=== PATIENT | male | born 1965 | race Caucasian/White ===

== ENCOUNTER 2021-03-11 20:22 | Inpatient (IN) | payer SELFPAY ==
--- OUTSIDE RECORDS SUMMARY | 2021-03-11 20:26 | XMS REPORT | Continuity of Care Document ---
:1965 Author Organization [facility] t Address [address] [place] [address] Dr. Nicholson [address] [place] [address] Care Team Providers Name Role Phone SHELLY Attending Clinician Unavailable Problems This patient has no known problems. Allergies, Adverse Reactions, Alerts This patient has no known allergies or adverse reactions. Medications This patient has no known medications. Procedures This patient has no known procedures. Encounters Start End Encounter Admission Attending Care Care Encounter Source Date/Time Date/Time Type Type Clinicians Facility Department ID 2020-05-29 2020-05-29 Outpatient [facility] [id number] [place] 00:00:00 00:00:00 JOSUE [address] 2020-05-08 2020-05-08 [facility] [id number] [place] 00:00:00 00:00:[address] Results This patient has no known results.
[2021-03-11] MEDS ORDERED: ASPIRIN 81 MG CHEWABLE TABLET ONE (21:13)
[2021-03-11] MEDS ORDERED: NITROGLYCERIN 0.4 MG/TAB SL ONE (21:13)
--- NOTE | 2021-03-11 21:52 | RAD REPORT ---
EXAM DESCRIPTION: RAD - Chest Single View - 03/11/2021 9:43 pm CLINICAL HISTORY: Chest pain;SOB Chest pain. COMPARISON: No comparisons FINDINGS: Portable technique limits examination quality. Mild interstitial pulmonary edema. The heart is moderately enlarged. Multi lead pacer/ defibrillator device is present. IMPRESSION: Mild CHF.
[2021-03-11 22:26] LABS: Absolute Lymphocytes (CBC) 1.5 K/uL (0.7-4.9); Hematocrit 42.7 % (39.6-49.0); Lymphocytes % 20.3 % (15.3-44.8); MPV 8.4 fL (7.6-11.3); RBC Red Blood Cell Count 4.54 M/uL (4.33-5.43)
[2021-03-11 22:36] LABS: Protime INR 0.9
[2021-03-11] MEDS ORDERED: NITROGLYCERIN 1 GM PKT TD ONE ×2 (22:40→22:41)
[2021-03-11 22:48] LABS: ALT/SGPT 28 U/L (12-78); AST/SGOT 19 U/L (15-37); Albumin 3.2 g/dL (3.4-5.0); Alkaline Phosphatase 82 U/L (45-117); BUN Blood Urea Nitrogen 9 mg/dL (7-18); Bicarbonate 28 mmol/L (21-32); Bilirubin Direct < 0.1 mg/dL (0-0.2); Bilirubin Total 0.3 mg/dL (0.2-1.0); Glucose Level 98 mg/dL (74-106); Magnesium 1.9 mg/dL (1.8-2.4); NT PRO-BNP 439 pg/mL (<125); Potassium 4.4 mmol/L (3.5-5.1); Protein, Total 7.1 g/dL (6.4-8.2); Sodium Level 135 mmol/L (136-145)
[2021-03-11] MEDS ORDERED: FUROSEMIDE 40 MG/4 ML VIAL ONE (23:04)
--- NOTE | 2021-03-11 23:44 | ER ---
Nurse's Notes [facility] Name: Ty Perez Age: 55 yrs Sex: Male : 1965 Arrival Date: 03/11/2021 Time: 20:25 Bed 8 Private MD: Diagnosis: Chest pain, unspecified;Acute on chronic combined systolic (congestive) and diastolic (congestive) heart failure Presentation: 03/11 20:38 Chief complaint: Patient states: I HAVE CHF AND I AM FEELING SHORT OF BREATH AND MY kd3 BLOOD PRESSURE HAS BEEN HIGH. I WANTED TO COME IN BEFORE IT GOT WORSE. Coronavirus screen: Vaccine status: Patient reports receiving the 2nd dose of the covid vaccine. Ebola Screen: No symptoms or risks identified at this time. Initial Sepsis Screen: Does the patient meet any 2 criteria? No. Patient's initial sepsis screen is negative. Does the patient have a suspected source of infection? No. Patient's initial sepsis screen is negative. Risk Assessment: Do you want to hurt yourself or someone else? Patient reports no desire to harm self or others. Onset of symptoms was March 11, 2021 at 15:00. 20:38 Method Of Arrival: Ambulatory kd3 20:38 Acuity: NAVEEN 3 kd3 Triage Assessment: 20:31 General: Appears in no apparent distress. Behavior is calm, cooperative, appropriate kd3 for age. Pain: Denies pain. Cardiovascular: Patient's skin is warm and dry. Historical: - Allergies: 20:40 CEPHALOSPORINS; kd3 - Home Meds: 20:41 valsartan 160 mg oral tab 1 tab once daily for chronic heart failure [Active]; kd3 captopril 25 mg Oral tab 1 tab 3 times per day [Active]; eplerenone 25 mg oral tab 1 tab once daily [Active]; - PMHx: 20:40 Congestive heart failure; Hypertensive disorder; kd3 - Immunization history:: Adult Immunizations up to date, Client reports receiving the 2nd dose of the Covid vaccine, Flu vaccine is up to date. - Social history:: Smoking status: Patient denies any tobacco usage or history of. Screenin:41 Abuse screen: Denies threats or abuse. Denies injuries from another. Nutritional kd3 screening: No deficits noted. Tuberculosis screening: No symptoms or risk factors identified. Fall Risk None identified. Assessment: 21:00 General: Appears in no apparent distress. comfortable, Behavior is calm, cooperative, al4 appropriate for age, patient states he came in due to "weird heart rhythm and dizziness that started at 1500". Pain: Complains of pain in chest Pain does not radiate. Pain began at 1500. Neuro: Level of Consciousness is awake, alert, obeys commands, Oriented to person, place, time, situation. Cardiovascular: Reports chest pain, Heart tones present Capillary refill < 3 seconds Patient's skin is warm and dry. Respiratory: Airway is patent Respiratory effort is even, unlabored, Respiratory pattern is regular, symmetrical, Breath sounds are clear bilaterally. GI: No signs and/or symptoms were reported involving the gastrointestinal system. : No signs and/or symptoms were reported regarding the genitourinary system. EENT: No signs and/or symptoms were reported regarding the EENT system. Derm: No signs and/or symptoms reported regarding the dermatologic system. Musculoskeletal: No signs and/or symptoms reported regarding the musculoskeletal system. 22:00 Reassessment: Patient and/or family updated on plan of care and expected duration. Pain al4 level reassessed. Patient is alert, oriented x 3, equal unlabored respirations, skin warm/dry/pink. 23:00 Reassessment: Patient and/or family updated on plan of care and expected duration. Pain al4 level reassessed. Patient is alert, oriented x 3, equal unlabored respirations, skin warm/dry/pink. 03/12 00:00 Reassessment: Patient and/or family updated on plan of care and expected duration. Pain al4 level reassessed. Patient is alert, oriented x 3, equal unlabored respirations, skin warm/dry/pink. 01:00 Reassessment: Patient and/or family updated on plan of care and expected duration. Pain al4 level reassessed. Patient is alert, oriented x 3, equal unlabored respirations, skin warm/dry/pink. 01:30 Reassessment: Patients rhythm went into v tach for about 30 seconds when standing up to al4 urinate in urinal. YELITZA Kign aware and came to bedside. 02:00 Reassessment: Patient and/or family updated on plan of care and expected duration. Pain al4 level reassessed. Patient is alert, oriented x 3, equal unlabored respirations, skin warm/dry/pink. 02:30 Reassessment: Patients rhythm went into V tach again for about 20 seconds. YELITZA King and al4 Dr. Tello aware. 03:00 Reassessment: Patient and/or family updated on plan of care and expected duration. Pain al4 level reassessed. Patient is alert/active/playful, equal unlabored respirations, skin warm/dry/pink. 04:03 Reassessment: Patient and/or family updated on plan of care and expected duration. Pain al4 level reassessed. Patient is alert, oriented x 3, equal unlabored respirations, skin warm/dry/pink. 05:07 Reassessment: patient is sleeping. VS are stable. . al4 05:32 Reassessment: patient is sleeping. VS are stable. Call light, phone, and urinal at al4 bedside within reach. 06:56 Reassessment: Patient is alert, oriented x 3, equal unlabored respirations, skin al4 warm/dry/pink. hospitalist came to bedside. aware of intermittent periods of VTach, not sustained. patient is resting comfortably. 19:15 General: Appears in no apparent distress. comfortable. Pain: Denies pain. Neuro: Level mk of Consciousness is awake, alert, obeys commands, Oriented to person, place, time, situation. Cardiovascular: Heart tones S1 S2 present Capillary refill < 3 seconds in bilateral fingers toes Clubbing of nail beds is absent JVD is absent Patient's skin is warm and dry. Respiratory: Airway is patent. GI: Abdomen is non-distended. : No signs and/or symptoms were reported regarding the genitourinary system. Vital Signs: 03/11 20:38 BP 180 / 98; Pulse 106; Resp 17; Temp 98.4; Pulse Ox 100% ; Weight 154.22 kg; Height 6 kd3 ft. (182.88 cm); Pain 0/10; 21:00 BP 142 / 109; Pulse 111; Resp 24; Pulse Ox 99% ; al4 22:00 BP 109 / 77; Pulse 89; Resp 16; Pulse Ox 98% ; al4 23:00 BP 110 / 63; Pulse 84; Resp 16; Pulse Ox 97% ; al4 03/12 01:06 BP 130 / 87; Pulse 98; Resp 23; Pulse Ox 97% ; al4 01:45 BP 108 / 62; Pulse 102; Resp 22; Pulse Ox 100% ; al4 02:15 BP 139 / 81; Pulse 100; Resp 16; Pulse Ox 99% ; al4 02:45 BP 131 / 94; Pulse 84; Resp 20; Pulse Ox 96% ; al4 03:45 BP 140 / 86; Pulse 89; Resp 21; Pulse Ox 99% ; al4 04:45 BP 144 / 70; Pulse 83; Resp 18; Pulse Ox 99% ; al4 05:15 BP 165 / 92; Pulse 85; Resp 18 S; Pulse Ox 99% on R/A; al4 06:15 BP 165 / 86; Pulse 85; Resp 16; Pulse Ox 100% on R/A; al4 19:41 BP 127 / 86; Pulse 96; Resp 18; Pulse Ox 98% on R/A; mk 03/11 20:38 Body Mass Index 46.11 (154.22 kg, 182.88 cm) kd3 ED Course: 03/11 20:25 Patient arrived in ED. jj6 20:34 Buzz Tello MD is Attending Physician. 7 20:40 Triage completed. kd3 20:40 Arm band placed on right wrist. kd3 21:30 Inserted saline lock: 20 gauge in left hand, using aseptic technique. al4 21:43 XRAY Chest (1 view) In Process Unspecified. EDMS 23:43 Gladys Carroll MD is Hospitalizing Provider. [facility] 23:49 Drew Glaser is Primary Nurse. al4 23:52 Patient has correct armband on for positive identification. Placed in gown. Bed in low al4 position. certified coder on. Pulse ox on. NIBP on. 23:52 Patient maintains SpO2 saturation greater than 95% on room air. al4 03/12 19:41 No provider procedures requiring assistance completed. Patient admitted, IV remains in mk place. 19:43 Primary Nurse role handed off by Drew Glaser 19:43 Bia Murray, MALAIKA is Primary Nurse. Administered Medications: 03/11 21:29 Drug: Aspirin Chewable Tablet 324 mg Route: PO; al4 21:56 Follow up: Response: No adverse reaction al4 21:29 Not Given (Patient Refused): Nitroglycerin 0.4 mg Sublingual once al4 22:47 Not Given (Patient Refused; physician aware ): Nitro-Bid (nitroglycerin) Ointment 2 % 1 al4 inches Transdermal once 23:14 Drug: Lasix (furosemide) 40 mg Route: IVP; Site: left hand; al4 23:53 Follow up: Response: No adverse reaction al4 Outcome: 23:43 Decision to Hospitalize by Provider. 7 03/12 19:41 Admitted to Pedi accompanied by nurse, via stretcher. mk Condition: stable Instructed on the need for admit. 19:44 Patient left the ED. mk Signatures: Dispatcher [employer] Buzz Reveles MD MD 7 Oriana Tan6 Krys Kim RN RN [id number] Drew Glaser Madeline, RN RN mk Corrections: (The following items were deleted from the chart) 03:55 03/11 21:00 Pain: Complains of pain in chest Pain does not radiate. Pain began al4 suddenly, al4 03/12 03:56 03/11 21:00 General: Appears in no apparent distress. comfortable, Behavior is calm, al4 cooperative, appropriate for age, al4
--- NOTE | 2021-03-11 23:44 | EDPHYS ---
Physician Documentation [facility] Name: Ty Perez Age: 55 yrs Sex: Male : 1965 Arrival Date: 03/11/2021 Time: 20:25 Bed 8 Private MD: ED Physician Buzz Tello HPI: 03/11 20:46 This 55 yrs old Male presents to ER via Ambulatory with complaints of CHF Exacerbation, mh7 Chest Tightness, Shortness Of Breath. 20:46 The patient or guardian reports chest pain that is located primarily in the substernal mh7 area. Onset: today, at 15:00. The pain does not radiate. Associated signs and symptoms: Pertinent positives: cough, dizziness, palpitations, shortness of breath, Pertinent negatives: abdominal pain, diaphoresis, headache, lower extremity pain, lower extremity swelling, lightheadedness, nausea, near syncope, recent travel, syncope, vomiting. The chest pain is described as Tightness. Duration: The patient or guardian reports multiple episodes, that are intermittent, that wax and wane, with no pattern. Modifying factors: The symptoms are alleviated by nothing. the symptoms are aggravated by nothing. Severity of pain: At its worst the pain was moderate today, in the emergency department the pain has improved moderately. Historical: - Allergies: 20:40 CEPHALOSPORINS; kd3 - Home Meds: 20:41 valsartan 160 mg oral tab 1 tab once daily for chronic heart failure [Active]; kd3 captopril 25 mg Oral tab 1 tab 3 times per day [Active]; eplerenone 25 mg oral tab 1 tab once daily [Active]; - PMHx: 20:40 Congestive heart failure; Hypertensive disorder; kd3 - Immunization history:: Adult Immunizations up to date, Client reports receiving the 2nd dose of the Covid vaccine, Flu vaccine is up to date. - Social history:: Smoking status: Patient denies any tobacco usage or history of. ROS: 20:46 Constitutional: Negative for fever, chills, and weight loss, Eyes: Negative for injury, mh7 pain, redness, and discharge, ENT: Negative for injury, pain, and discharge, Neck: Negative for injury, pain, and swelling, Abdomen/GI: Negative for abdominal pain, nausea, vomiting, diarrhea, and constipation, Back: Negative for injury and pain, : Negative for injury, bleeding, discharge, and swelling, MS/Extremity: Negative for injury and deformity, Skin: Negative for injury, rash, and discoloration, Neuro: Negative for headache, weakness, numbness, tingling, and seizure, Psych: Negative for depression, anxiety, suicide ideation, homicidal ideation, and hallucinations, Allergy/Immunology: Negative for hives, rash, and allergies, Endocrine: Negative for neck swelling, polydipsia, polyuria, polyphagia, and marked weight changes, Hematologic/Lymphatic: Negative for swollen nodes, abnormal bleeding, and unusual bruising. Exam: 20:46 Constitutional: This is a well developed, well nourished patient who is awake, alert, mh7 and in no acute distress. Head/Face: Normocephalic, atraumatic. Eyes: Pupils equal round and reactive to light, extra-ocular motions intact. Lids and lashes normal. Conjunctiva and sclera are non-icteric and not injected. Cornea within normal limits. Periorbital areas with no swelling, redness, or edema. Neck: Trachea midline, no thyromegaly or masses palpated, and no cervical lymphadenopathy. Supple, full range of motion without nuchal rigidity, or vertebral point tenderness. No Meningismus. Chest/axilla: Normal chest wall appearance and motion. Nontender with no deformity. No lesions are appreciated. 20:46 Respiratory: Lungs have equal breath sounds bilaterally, clear to auscultation and 7 percussion. No rales, rhonchi or wheezes noted. No increased work of breathing, no retractions or nasal flaring. Abdomen/GI: Soft, non-tender, with normal bowel sounds. No distension or tympany. No guarding or rebound. No evidence of tenderness throughout. Back: No spinal tenderness. No costovertebral tenderness. Full range of motion. Skin: Warm, dry with normal turgor. Normal color with no rashes, no lesions, and no evidence of cellulitis. MS/ Extremity: Pulses equal, no cyanosis. Neurovascular intact. Full, normal range of motion. Neuro: Awake and alert, GCS 15, oriented to person, place, time, and situation. Cranial nerves II-XII grossly intact. Motor strength 5/5 in all extremities. Sensory grossly intact. Cerebellar exam normal. Normal gait. Psych: Awake, alert, with orientation to person, place and time. Behavior, mood, and affect are within normal limits. 20:46 Cardiovascular: Rate: tachycardic, Rhythm: regular, Pulses: no pulse deficits are appreciated, Heart sounds: normal, normal S1and S2, Edema: is not appreciated, JVD: is not appreciated. Vital Signs: 20:38 BP 180 / 98; Pulse 106; Resp 17; Temp 98.4; Pulse Ox 100% ; Weight 154.22 kg; Height 6 kd3 ft. (182.88 cm); Pain 0/10; 21:00 BP 142 / 109; Pulse 111; Resp 24; Pulse Ox 99% ; al4 22:00 BP 109 / 77; Pulse 89; Resp 16; Pulse Ox 98% ; al4 23:00 BP 110 / 63; Pulse 84; Resp 16; Pulse Ox 97% ; al4 03/12 01:06 BP 130 / 87; Pulse 98; Resp 23; Pulse Ox 97% ; al4 01:45 BP 108 / 62; Pulse 102; Resp 22; Pulse Ox 100% ; al4 02:15 BP 139 / 81; Pulse 100; Resp 16; Pulse Ox 99% ; al4 02:45 BP 131 / 94; Pulse 84; Resp 20; Pulse Ox 96% ; al4 03:45 BP 140 / 86; Pulse 89; Resp 21; Pulse Ox 99% ; al4 04:45 BP 144 / 70; Pulse 83; Resp 18; Pulse Ox 99% ; al4 05:15 BP 165 / 92; Pulse 85; Resp 18 S; Pulse Ox 99% on R/A; al4 06:15 BP 165 / 86; Pulse 85; Resp 16; Pulse Ox 100% on R/A; al4 19:41 BP 127 / 86; Pulse 96; Resp 18; Pulse Ox 98% on R/A; mk 03/11 20:38 Body Mass Index 46.11 (154.22 kg, 182.88 cm) kd3 MDM: 03/11 23:41 Differential diagnosis: abnormal EKG, acute myocardial infarction, acute pericarditis, mh7 anxiety, coronary artery disease chest wall pain, congestive heart failure costochondritis, esophagitis, gastritis, gastroesophageal reflux disease (GERD), myocarditis, pericarditis, pneumonia, pneumothorax. HEART Score: History: Moderately Suspicious (1), ECG: Non specific repolarization disturbance / LBTB / PM (1), Age: > 45 and < 65 years (1), Risk Factors: 1 or 2 risk factors (1), [Hypercholesterolemia] [Hypertension] Troponin: < or = 1 x Normal Limit (0), Total Score = 4. The patient was given aspirin in the Emergency Department. Data reviewed: vital signs, nurses notes, lab test result(s), cardiac enzymes, CBC, electrolytes, EKG, radiologic studies, plain films. Data interpreted: Pulse oximetry: on 2L(s) per nasal canula, is 100 %. Interpretation: acceptable. Counseling: I had a detailed discussion with the patient and/or guardian regarding: the historical points, exam findings, and any diagnostic results supporting the discharge/admit diagnosis, the presence of at least one elevated blood pressure reading (>120/80) during this emergency department visit, lab results, radiology results, the need for further work-up and treatment in the hospital. Response to treatment: the patient's symptoms have markedly improved after treatment. 23:43 Patient medically screened. [facility] 03/11 20:46 Order name: Basic Metabolic Panel; Complete Time: 22:51 [facility] 03/11 20:46 Order name: CBC with Diff; Complete Time: 22:51 [facility] 03/11 20:46 Order name: LFT's; Complete Time: 22:51 [facility] 03/11 20:46 Order name: Magnesium; Complete Time: 22:51 [facility] 03/11 20:46 Order name: NT PRO-BNP; Complete Time: 22:51 [facility] 03/11 20:46 Order name: PT-INR; Complete Time: 22:51 [facility] 03/11 20:46 Order name: Troponin HS; Complete Time: 22:51 [facility] 03/11 20:46 Order name: TSH; Complete Time: 22:51 [facility] 03/11 20:49 Order name: COVID-19/FLU A+B (Document "Date of Onset" if Symptomatic); Complete Time: [facility] 02:53 03/12 02:53 Interpretation: Within normal limits. ej 03/12 01:25 Order name: Urine Dipstick-Ancillary [facility] 03/12 03:33 Order name: CBC with Automated Diff [facility] 03/12 03:52 Order name: Comprehensive Metabolic Panel [facility] 03/12 03:52 Order name: Phosphorus [facility] 03/12 03:52 Order name: Lipid Profile [facility] 03/11 20:46 Order name: XRAY Chest (1 view); Complete Time: 21:53 [facility] 03/11 20:46 Order name: EKG; Complete Time: 20:47 [facility] 03/11 20:46 Order name: Cardiac monitoring; Complete Time: 21:30 [facility] 03/11 20:46 Order name: EKG - Nurse/Tech; Complete Time: 21:30 [facility] 03/11 20:46 Order name: IV Saline Lock; Complete Time: 21:30 [facility] 03/11 20:46 Order name: Labs collected and sent; Complete Time: 21:30 [facility] 03/11 20:46 Order name: O2 Per Protocol; Complete Time: 21:30 [facility] 03/12 00:00 Order name: CONS Physician Consult [facility] 03/12 03:52 Order name: T4 Free [facility] 03/12 03:52 Order name: Magnesium [facility] 03/12 03:55 Order name: Troponin High Sensitivity [facility] 03/12 08:15 Order name: Troponin High Sensitivity [facility] 03/11 20:46 Order name: O2 Sat Monitoring; Complete Time: 21:30 [facility] 03/11 20:46 Order name: Urine Dipstick-Ancillary (obtain specimen); Complete Time: 01:47 [facility] 03/11 21:40 Order name: Labs - recollect needed: all labs needed; Complete Time: 00:25 mw2 Administered Medications: 21:29 Drug: Aspirin Chewable Tablet 324 mg Route: PO; al4 21:56 Follow up: Response: No adverse reaction al4 21:29 Not Given (Patient Refused): Nitroglycerin 0.4 mg Sublingual once al4 22:47 Not Given (Patient Refused; physician aware ): Nitro-Bid (nitroglycerin) Ointment 2 % 1 al4 inches Transdermal once 23:14 Drug: Lasix (furosemide) 40 mg Route: IVP; Site: left hand; al4 23:53 Follow up: Response: No adverse reaction al4 Disposition Summary: 03/11/21 23:43 Hospitalization Ordered Hospitalization Status: Observation [facility] Provider: Gladys Carroll Condition: Stable [facility] Problem: an acute exacerbation [facility] Symptoms: have improved [facility] Bed/Room Type: Standard [facility] Location: Telemetry/MedSurg (observation)(03/12/21 18:39) dw Room Assignment: 211(03/12/21 18:39) dw Diagnosis - Chest pain, unspecified 7 - Acute on chronic combined systolic (congestive) and diastolic (congestive) heart [facility] failure Forms: - Medication Reconciliation Form 7 - SBAR form 7 Signatures: Dispatcher [employer] EDMS Serene Padilla RN RN Marilia Valente RN RN Marquise Bauer 2 Buzz Tello MD MD 7 Fernando Scott PA PA ej Doucette, Kyli RN RN 3 Drew Glaser4 Corrections: (The following items were deleted from the chart) 03/12 03:48 03/11 23:43 Telemetry/MedSurg (observation) [facility] 03/12 03:48 03/11 23:43 [facility] 03/12 18:39 03:48 BR ER HOLD [facility] 18:39 03:48 ERHOLD- [facility]
--- NOTE | 2021-03-12 01:24 | P.HP ---
Certification for Inpatient Patient admitted to: Inpatient With expected LOS: >2 Midnights Patient will require the following post-hospital care: None Practitioner: I am a practitioner with admitting privileges, knowledge of patient current condition, hospital course, and medical plan of care. Services: Services provided to patient in accordance with Admission requirements found in Title 42 Section 412.3 of the Code of Federal Regulations Patient History Date of Service: 03/11/21 Reason for admission: chest pain, palpitations, CHF exacerbation History of Present Illness: Mr. Perez is a 55 yo M with CHF s/p defibrillator/pacemaker, HTN, CAD (NH in 1991, 2011, 2014), history of cardiac arrest who presents with substernal chest discomfort and shortness of breath beginning today at 3pm when he went to walk his dogs. He reports dizziness, palpitations, and diaphoresis with this episode. He says he had similar episodes 4 more times today. He notes today that he drank double the coffee than usual (6 cups, instead of 3). He says he will have these episodes 1-2 times a year, but usually he returns to normal afterward. He has a pacemaker/defibrillator that he has not had checked due to not having health insurance. He used to see Dr. Benitez at [facility]. He says the pacemaker used to alarm daily at the same time everyday, but now it does not. BNP 439. While at bedside, the monitor read 180 bpm, ventricular tachycardia and he told me he felt like he was having an episode. His heartbeat was rapid and irregular. A few seconds later, the monitor dropped to 100bpm and he told me the sensation stopped as well. His heartbeat was regular rate and rhythm on repeat examination. CXR IMPRESSION: Mild CHF. - Past Medical/Surgical History -: CHf -: HTN -: NH x 3 (1991 2011 2014) -: cardiac arrest -: pacer/defibrillator -: angioplasty -: cardiac stents x 4 -: CABG x 3 -: IVC filter - Social History Smoking Status: Never smoker Alcohol use: No CD- Drugs: No Caffeine use: Yes Place of Residence: Home Review of Systems 10-point ROS is otherwise unremarkable General: Sweats Eyes: Unremarkable ENT: Unremarkable Respiratory: SOB with Excertion, As per HPI Cardiovascular: Chest Pain, Palpitations, Light Headedness, As per HPI Gastrointestinal: Unremarkable Genitourinary: Unremarkable Musculoskeletal: Unremarkable Integumentary: Unremarkable Neurological: Unremarkable Lymphatics: Unremarkable Physical Examination - Physical Exam General: Alert, In no apparent distress HEENT: Atraumatic, PERRLA, Mucous membr. moist/pink, EOMI, Sclerae nonicteric Neck: Supple, 2+ carotid pulse no bruit, No LAD, Without JVD or thyroid abnormality Respiratory: Clear to auscultation bilaterally, Normal air movement Cardiovascular: Irregular heart rate/rhythm Gastrointestinal: Normal bowel sounds, No tenderness Musculoskeletal: No tenderness Integumentary: No rashes Neurological: Normal gait, Normal speech, Normal strength at 5/5 x4 extr, Normal tone, Normal affect Lymphatics: No axilla or inguinal lymphadenopathy - Studies Laboratory Data (last 24 hrs) 03/11/21 22:11: PT 10.3, INR 0.90 03/11/21 22:11: WBC 7.40, Hgb 14.1, Hct 42.7, Plt Count 240 03/11/21 22:11: Sodium 135 L, Potassium 4.4, BUN 9, Creatinine 1.19, Glucose 98, Magnesium 1.9, Total Bilirubin 0.3, AST 19, ALT 28, Alkaline Phosphatase 82 Assessment and Plan - Problems (Diagnosis) (1) CHF (congestive heart failure) Current Visit: Yes Status: Chronic Qualifiers: Heart failure type: unspecified Heart failure chronicity: acute on chronic Qualified Code(s): I50.9 - Heart failure, unspecified (2) HTN (hypertension) Current Visit: Yes Status: Chronic Qualifiers: Hypertension type: primary hypertension Qualified Code(s): I10 - Essential (primary) hypertension (3) CAD (coronary artery disease) Current Visit: Yes Status: Chronic Qualifiers: Coronary Disease-Associated Artery/Lesion type: bypass graft [place] vs. transplanted heart: [place] heart Associated angina: unspecified whether angina present Qualified Code(s): I25.810 - Atherosclerosis of coronary artery bypass graft(s) without angina pectoris (4) History of cardiac arrest Current Visit: Yes Status: Chronic (5) Palpitations Current Visit: Yes Status: Acute (6) Presence of combination internal cardiac defibrillator (ICD) and pacemaker Current Visit: Yes Status: Chronic - Plan cardiology consulted on tele, pacemaker pads placed repeat EKG, trend troponins reconcile and continue home medications hydralazine PRN for BP spikes low sodium diet, daily weights, fluid restrict, lasix IV daily, O2 as needed PRN morphine and nitroglycerin DVT ppx Discharge Plan: Home Plan to discharge in: 48 Hours - Advance Directives Does patient have a Living Will: No Does patient have a Durable POA for Healthcare: No - Code Status/Comfort Care Code Status Assessed: Yes (full code ) Critical Care: No Time Spent Managing Pts Care (In Minutes): 70
[2021-03-12 01:25] LABS: Urine Blood Negative (Negative); Urine Glucose Negative (Negative); Urine Protein Negative (Negative); Urine Specific Gravity 1.015 (1.005-1.030); Urine pH 6.5 (5.0-7.0)
[2021-03-12] MEDS ORDERED: AMIODARONE HCL 150 MG in D5W 100 ML IV STA (02:11)
[2021-03-12] MEDS ORDERED: MORPHINE 2 MG/ML SYR IV PRN (02:11)
[2021-03-12] MEDS ORDERED: ACETAMINOPHEN 500 MG TAB PO PRN (02:11)
[2021-03-12] MEDS ORDERED: AMIODARONE HCL 900 MG in Dextrose 5%-Water 482 ML IV SCH (02:11)
[2021-03-12] MEDS ORDERED: HYDRALAZINE HCL 20 MG/ML VIAL IV PRN (02:11)
[2021-03-12] MEDS ORDERED: NITROGLYCERIN 0.4 MG/TAB SL PRN (02:11)
[2021-03-12] MEDS ORDERED: ONDANSETRON 4 MG/2 ML VIAL IV PRN (02:11)
[2021-03-12] MEDS ORDERED: AMIODARONE HCL 150 MG/3 ML INJ IV ONE (02:19)
[2021-03-12] MEDS ORDERED: D5W 100 ML IV ONE (02:19)
[2021-03-12 02:50] LABS: SARS-COV-2 RT PCR NEGATIVE (NEGATIVE)
[2021-03-12 03:27] LABS: Absolute Lymphocytes (CBC) 1.7 K/uL (0.7-4.9); Hematocrit 44.4 % (39.6-49.0); Lymphocytes % 18.1 % (15.3-44.8); MPV 8.5 fL (7.6-11.3); RBC Red Blood Cell Count 4.71 M/uL (4.33-5.43)
[2021-03-12 03:52] LABS: Albumin 3.5 g/dL (3.4-5.0); Bilirubin Total 0.5 mg/dL (0.2-1.0); Magnesium 2.1 mg/dL (1.8-2.4); Potassium 3.9 mmol/L (3.5-5.1); Protein, Total 7.7 g/dL (6.4-8.2)
[2021-03-12 04:10] VITALS: BMI 46.0
[2021-03-12] MEDS ORDERED: INFLUENZA VACCINE (for 6+ mo) 0.5 ML DOSE IMVAC ONE (08:00)
[2021-03-12] MEDS ORDERED: carvediloL 6.25 MG TAB ONE (08:43)
[2021-03-12] MEDS ORDERED: ASPIRIN EC 81 MG TAB PO ONE (08:43)
[2021-03-12] MEDS ORDERED: VALSARTAN 80 MG TAB ONE (08:44)
[2021-03-12] MEDS ORDERED: FUROSEMIDE 40 MG/4 ML VIAL ONE (08:44)
[2021-03-12] MEDS ORDERED: PRASUGREL (EFFIENT) 10 MG TAB ONE (08:44)
[2021-03-12] MEDS ORDERED: ENOXAPARIN 40 MG/0.4 ML SQ ONE (08:45)
[2021-03-12] MEDS ORDERED: VALSARTAN 160 MG TAB PO SCH (09:00)
[2021-03-12] MEDS ORDERED: ENOXAPARIN 40 MG/0.4 ML SQ SCH (09:00)
[2021-03-12] MEDS: ASPIRIN EC 81 MG TAB PO SCH (09:00)
[2021-03-12] MEDS ORDERED: CAPTOPRIL 25 MG TABLET PO SCH (09:00)
[2021-03-12] MEDS ORDERED: carvediloL 6.25 MG TAB PO SCH (09:00)
[2021-03-12] MEDS ORDERED: PRASUGREL (EFFIENT) 10 MG TAB PO SCH (09:00)
[2021-03-12] MEDS ORDERED: FUROSEMIDE 40 MG/4 ML VIAL IV SCH (09:00)
--- NOTE | 2021-03-12 09:48 | P.PN ---
Subjective Date of Service: 03/12/21 Primary Care Provider: Dr. Lutz(Confucianist); Cardiology-Dr. Burks Chief Complaint: chest pain, palpitations, CHF exacerbation Subjective: Improving, Doing well Physical Examination - Vital Signs Blood Pressure: 155/92 Pulse: 98 Respirations: 18 Pulse Ox (%): 98 - Studies Laboratory Data (last 24 hrs) 03/11/21 22:11: PT 10.3, INR 0.90 03/11/21 22:11: WBC 7.40, Hgb 14.1, Hct 42.7, Plt Count 240 03/11/21 22:11: Sodium 135 L, Potassium 4.4, BUN 9, Creatinine 1.19, Glucose 98, Magnesium 1.9, Total Bilirubin 0.3, AST 19, ALT 28, Alkaline Phosphatase 82 Assessment & Plan Discharge Plan: Home Plan to discharge in: 24 Hours Physician Review Additional Text: COVID: negative CXR: COMPARISON: No comparisons FINDINGS: Portable technique limits examination quality. Mild interstitial pulmonary edema. The heart is moderately enlarged. Multi lead pacer/ defibrillator device is present. IMPRESSION: Mild CHF. Physical exam: General: Alert, In no apparent distress HEENT: Atraumatic, PERRLA, Mucous membr. moist/pink, EOMI, Sclerae nonicteric Neck: Supple, 2+ carotid pulse no bruit, No LAD, Without JVD or thyroid abnormality Respiratory: Clear to auscultation bilaterally, Normal air movement Cardiovascular: Sinus tachycardia with PVCs Gastrointestinal: Normal bowel sounds, No tenderness Musculoskeletal: No tenderness Integumentary: No rashes Neurological: Normal gait, Normal speech, Normal strength at 5/5 x4 extr, Normal tone, Normal affect Lymphatics: No axilla or inguinal lymphadenopathy Impression: Chest pain, palpitations secondary to acute on chronic combined CHF Sinus tachycardia with PVCs and occasional V. tach Hypertension Hyperlipidemia CAD History of internal pacemaker defibrillator Plan: Chest pain, palpitations secondary to acute on chronic combined CHF: Overall stable. Patient seen and evaluated by cardiology. We will transition IV Lasix to oral. Recheck chest x-ray tomorrow. Continue to monitor closely. Sinus tachycardia with PVCs and occasional V. tach: Spoke with cardiology. We will transition off IV amiodarone to oral amiodarone 400 mg 1 pill twice daily. Patient will continue with this for 1 more week then 200 mg daily. Patient will also require chronic anticoagulation therapy. We will start Xarelto. We will check to see if social work can help patient to continue Xarelto 20 mg daily at home. Anticipate likely discharge tomorrow. Hypertension: Increase carvedilol to 12.5 mg 1 pill twice daily. Continue with captopril 12.5 mg 3 times a day, and valsartan 160 mg daily. Will monitor and adjust medication. Hyperlipidemia: LDL elevated. Will increase Lipitor to 80 mg daily CAD: Continue with above plan of care. History of internal pacemaker defibrillator: Pacemaker defibrillator to be interrogated. DVT prophylaxis: Xarelto CODE STATUS: Full code Advance care [id number] minutes: Home at discharge likely tomorrow. Time Spent Managing Pts Care (In Minutes): 55
[2021-03-12] MEDS: carvediloL 12.5 MG TAB PO SCH ×2 (10:00→21:00)
[2021-03-12] MEDS ORDERED: AMIODARONE HCL 200 MG TAB ONE (14:05)
[2021-03-12] MEDS: AMIODARONE HCL 200 MG TAB PO SCH ×2 (14:15→21:21)
[2021-03-12] MEDS ORDERED: HYDROCODONE/APAP 10/325 TAB PO ONE (14:26)
[2021-03-12] MEDS ORDERED: HYDROCODONE/APAP 10/325 TAB ONE (14:26)
[2021-03-12] MEDS: CAPTOPRIL 25 MG TABLET PO SCH (17:00)
[2021-03-12] MEDS ORDERED: RIVAROXABAN 20 MG TABLET PO SCH (17:00)
[2021-03-12] MEDS ORDERED: FUROSEMIDE 40 MG TABLET PO SCH (17:00)
[2021-03-12] MEDS ORDERED: RIVAROXABAN 20 MG TABLET PO ONE (18:24)
[2021-03-12] MEDS ORDERED: FUROSEMIDE 40 MG TABLET ONE (18:25)
[2021-03-12] MEDS ORDERED: ATORVASTATIN 80 MG TAB PO SCH (21:00)
[2021-03-12] MEDS ORDERED: ATORVASTATIN 40 MG TAB PO SCH (21:00)
[2021-03-13 00:09] VITALS: O2SAT 97
[2021-03-13] MEDS: CAPTOPRIL 25 MG TABLET PO SCH ×2 (01:00→09:33)
[2021-03-13] MEDS ORDERED: NA CHLORIDE 0.9% 500 ML IV ONE (01:02)
--- NOTE | 2021-03-13 05:51 | P.PN ---
Subjective Date of Service: 03/13/21 Primary Care Provider: Dr. Lutz(Lutheran); Cardiology-Dr. Burks Chief Complaint: chest pain, palpitations, CHF exacerbation Subjective: Improving, Doing well Physical Examination - Vital Signs Temperature: 97.1 F Blood Pressure: 123/59 Pulse: 80 Respirations: 18 Pulse Ox (%): 95 Assessment & Plan Discharge Plan: Home Plan to discharge in: 24 Hours Physician Review Additional Text: COVID: negative CXR: COMPARISON: No comparisons FINDINGS: Portable technique limits examination quality. Mild interstitial pulmonary edema. The heart is moderately enlarged. Multi lead pacer/ defibrillator device is present. IMPRESSION: Mild CHF. Physical exam: General: Alert, In no apparent distress HEENT: Atraumatic, PERRLA, Mucous membr. moist/pink, EOMI, Sclerae nonicteric Neck: Supple, 2+ carotid pulse no bruit, No LAD, Without JVD or thyroid abnormality Respiratory: Clear to auscultation bilaterally, Normal air movement Cardiovascular: Normal sinus rhythm Gastrointestinal: Normal bowel sounds, No tenderness Musculoskeletal: No tenderness Integumentary: No rashes Neurological: Normal gait, Normal speech, Normal strength at 5/5 x4 extr, Normal tone, Normal affect Lymphatics: No axilla or inguinal lymphadenopathy Impression: Chest pain, palpitations secondary to acute on chronic combined CHF Sinus tachycardia with PVCs and occasional V. tach Hypertension Hyperlipidemia CAD History of internal pacemaker defibrillator Plan: Chest pain, palpitations secondary to acute on chronic combined CHF: Patient doing well. Currently on room air. Continue Lasix 40 mg daily. Will discuss with cardiology. Dissipate discharge later today. Sinus tachycardia with PVCs and occasional V. tach: Spoke with cardiology. Patient will continue with amiodarone 400 mg twice daily for 1 week then 200 mg daily. Patient will also continue with Xarelto 20 mg daily. Pacemaker defibrillator to be checked today. Will discuss with cardiology about possible discharge today. Hypertension: Blood pressure improved with changes. Continue carvedilol 12.5 mg 1 pill twice daily. Continue with captopril 12.5 mg 3 times a day and valsartan 160 mg daily. Will monitor and adjust medication. Hyperlipidemia: LDL [id number]. Lipitor has been increased to 80 mg daily. CAD: Continue with above plan of care. History of internal pacemaker defibrillator: Pacemaker defibrillator to be interrogated. DVT prophylaxis: Xarelto CODE STATUS: Full code Advance care [id number] minutes: Anticipate home today Time Spent Managing Pts Care (In Minutes): 55
[2021-03-13 05:53] LABS: Hematocrit 42.8 % (39.6-49.0); Lymphocytes % 22.5 % (15.3-44.8); MPV 8.2 fL (7.6-11.3); RBC Red Blood Cell Count 4.53 M/uL (4.33-5.43)
[2021-03-13 06:14] LABS: Albumin 3.3 g/dL (3.4-5.0); Bilirubin Total 0.4 mg/dL (0.2-1.0); Magnesium 2.3 mg/dL (1.8-2.4); Phosphorus 4.6 mg/dL (2.5-4.9); Potassium 4.2 mmol/L (3.5-5.1); Protein, Total 7.3 g/dL (6.4-8.2)
--- NOTE | 2021-03-13 07:33 | RAD REPORT ---
EXAM DESCRIPTION: RAD - Chest Single View - 03/13/2021 6:16 am CLINICAL HISTORY: Follow up CHF COMPARISON: Chest Single View dated 03/11/2021 FINDINGS: Lines: Pacemaker/ICD. Lungs: Mild hazy opacities in prominence of the pulmonary interstitium with some improvement. Surgica l changes in the left upper lobe. Pleural: No significant pleural effusions or pneumothorax. Cardiac: Cardiomegaly. Bones: No acute fractures. Other: IMPRESSION: Mild improvement in edema.
[2021-03-13] MEDS ORDERED: VALSARTAN 160 MG TAB PO SCH (09:00)
[2021-03-13] MEDS ORDERED: FUROSEMIDE 40 MG TABLET PO SCH (09:00)
[2021-03-13 09:22] VITALS: TEMP 97.1
--- NOTE | 2021-03-13 09:23 | P.DS ---
Admission Date: 03/11/21 Discharge Date: 03/13/21 Primary Care Provider: Dr. Lutz(Yarsani); Cardiology-Dr. Burks Disposition: ROUTINE DISCHARGE Discharge Condition: GOOD Reason for Admission: chest pain, palpitations, CHF exacerbation Consultations: Cardiology-Dr. Mccauley Procedures: COVID: negative Initial CXR: COMPARISON: No comparisons FINDINGS: Portable technique limits examination quality. Mild interstitial pulmonary edema. The heart is moderately enlarged. Multi lead pacer/ defibrillator device is present. IMPRESSION: Mild CHF. Follow up CXR: COMPARISON: Chest Single View dated 03/11/2021 FINDINGS: Lines: Pacemaker/ICD. Lungs: Mild hazy opacities in prominence of the pulmonary interstitium with some improvement. Surgical changes in the left upper lobe. Pleural: No significant pleural effusions or pneumothorax. Cardiac: Cardiomegaly. Bones: No acute fractures. IMPRESSION: Mild improvement in edema. Medical Problem list: Chest pain, palpitations secondary to acute on chronic combined CHF and atrial fibrillation Atrial fibrillation with atrial variant Hypertension Hyperlipidemia CAD History of internal pacemaker defibrillator Depression Brief History of Present Illness: 55-year-old male with history of CHF, hypertension, hyperlipidemia, and CAD. Patient also has internal pacemaker defibrillator. Patient presented with chest pain and palpitations. Patient found to have acute on chronic CHF with atrial fibrillation. Patient was admitted for treatment. Hospital Course: Patient presented with chest pain, palpitations secondary to acute on chronic combined CHF. Patient also found to have atrial fibrillation with atrial variant. Patient received IV diuretic therapy with improvement for his CHF. Patient was also seen by cardiology. Due to his atrial fibrillation the patient required IV amiodarone. This was transitioned to oral amiodarone. Patient has done well. Patient on room air at this time. No complaints of chest pain or shortness of breath noted. For his CHF, the patient will continue with 1500 cc/day fluid restriction and low-salt diet. At discharge the patient will continue with Lasix 40 mg daily. Recommend to monitor his weight daily. If his weight increases by more than 5 pounds further adjustment in his medication may be required. For his atrial fibrillation, the patient will continue with amiodarone 400 mg twice daily for 1 week then 200 mg daily thereafter. The patient will also continue with Xarelto 20 mg daily for chronic anticoagulation therapy. Recommend follow-up with cardiology within 1 week. Recommend to recheck labBMP in 1 week to monitor his progress. His pacemaker defibrillator will be checked by cardiology as an outpatient. Recommend follow-up with PCP in 1 week to follow-up his hospitalization. Education on CHF, atrial fibrillation, amiodarone, and Xarelto will be provided. Patient with hypertension. Blood pressures were elevated upon admission. Medications have been adjusted for better control. Blood pressure improved. At discharge the patient will continue with carvedilol 12.5 mg 1 pill twice daily, captopril 12.5 mg 3 times a day and valsartan 160 mg daily. Recommend to maintain blood pressure less than 130/80. Further adjustment may be required with the help of his PCP if blood pressures remain above 140/90. Recommend follow-up with PCP in 1 week to monitor his progress. Recommend to recheck labBMP in 1 week to monitor. Patient with hyperlipidemia. LDL elevated at 259. Lipitor was increased to 80 mg daily. At discharge patient will continue with Lipitor 80 mg daily. Recommend to recheck labCMP and fasting lipid panel in 4 to 6 weeks to monitor his progress. Patient with history of CAD and internal pacemaker defibrillator. Patient will follow-up with cardiology within 1 week. Cardiology will plan to further evaluate his pacemaker defibrillator at that time. Patient with depression. At discharge patient will continue with Paxil 25 mg daily. Recommend follow-up with PCP to further monitor and address. Vital Signs/Physical Exam: Temp Pulse Resp BP Pulse Ox 97.1 F 80 18 123/59 L 95 03/13/21 09:21 03/13/21 09:21 03/13/21 09:21 03/13/21 09:21 03/13/21 09:21 General: Alert, In no apparent distress, Oriented x3, Cooperative HEENT: Atraumatic Neck: Supple Respiratory: Clear to auscultation bilaterally, Normal air movement Cardiovascular: Normal pulses, Regular rate/rhythm Gastrointestinal: Normal bowel sounds, No tenderness, No masses, No rebound, No guarding Musculoskeletal: No erythema, No tenderness, No warmth Integumentary: No tenderness/swelling, No erythema, No warmth, No cyanosis Neurological: Normal speech, Normal strength at 5/5 x4 extr, Normal tone, Normal affect Laboratory Data at Discharge: WBC 9.00 K/uL (4.3-10.9) 03/13/21 05:21 Hgb 14.3 g/dL (13.6-17.9) 03/13/21 05:21 Hct 42.8 % (39.6-49.0) 03/13/21 05:21 Plt Count 277 K/uL (152-406) 03/13/21 05:21 PT 10.3 SECONDS (9.5-12.5) 03/11/21 22:11 INR 0.90 03/11/21 22:11 Sodium 135 mmol/L (136-145) L 03/13/21 05:21 Potassium 4.2 mmol/L (3.5-5.1) 03/13/21 05:21 BUN 20 mg/dL (7-18) H 03/13/21 05:21 Creatinine 1.63 mg/dL (0.55-1.3) H 03/13/21 05:21 Glucose 114 mg/dL (74-106) H 03/13/21 05:21 Phosphorus 4.6 mg/dL (2.5-4.9) D 03/13/21 05:21 Magnesium 2.3 mg/dL (1.8-2.4) 03/13/21 05:21 Total Bilirubin 0.4 mg/dL (0.2-1.0) 03/13/21 05:21 AST 19 U/L (15-37) 03/13/21 05:21 ALT 29 U/L (12-78) 03/13/21 05:21 Alkaline Phosphatase 80 U/L (45-117) 03/13/21 05:21 Triglycerides 120 mg/dL (<150) 03/12/21 02:59 Cholesterol 342 mg/dL (<200) H 03/12/21 02:59 HDL Cholesterol 59 mg/dL (40-60) 03/12/21 02:59 Cholesterol/HDL Ratio 5.80 03/12/21 02:59 Home Medications: Paroxetine HCl [Paroxetine ER] 25 mg PO DAILY 03/12/21 Amiodarone HCl [Cordarone*] 400 mg PO SEECOM #50 tab 03/13/21 Atorvastatin Calcium [Lipitor] 80 mg PO BEDTIME #30 tab 03/13/21 Furosemide [Lasix*] 40 mg PO DAILY #30 tab 03/13/21 Valsartan [Diovan*] 160 mg PO DAILY #30 tab 03/13/21 captopriL [Captopril] 12.5 mg PO TID #90 03/13/21 carvediloL [Coreg*] 12.5 mg PO BID #60 tab 03/13/21 New Medications: captopriL [Captopril] 12.5 mg PO TID #90 Amiodarone HCl [Cordarone*] 400 mg PO SEECOM #50 tab carvediloL [Coreg*] 12.5 mg PO BID #60 tab Valsartan [Diovan*] 160 mg PO DAILY #30 tab Furosemide [Lasix*] 40 mg PO DAILY #30 tab Atorvastatin Calcium [Lipitor] 80 mg PO BEDTIME #30 tab Physician Discharge Instructions: Patient presented with chest pain, palpitations secondary to acute on chronic combined CHF. Patient also found to have atrial fibrillation with atrial variant. Patient received IV diuretic therapy with improvement for his CHF. Patient was also seen by cardiology. Due to his atrial fibrillation the patient required IV amiodarone. This was transitioned to oral amiodarone. Patient has done well. Patient on room air at this time. No complaints of chest pain or shortness of breath noted. For his CHF, the patient will continue with 1500 cc/day fluid restriction and low-salt diet. At discharge the patient will continue with Lasix 40 mg daily. Recommend to monitor his weight daily. If his weight increases by more than 5 pounds further adjustment in his medication may be required. For his atrial fibrillation, the patient will continue with amiodarone 400 mg twice daily for 1 week then 200 mg daily thereafter. The patient will also continue with Xarelto 20 mg daily for chronic anticoagulation therapy. Recommend follow-up with cardiology within 1 week. Recommend to recheck labBMP in 1 week to monitor his progress. His pacemaker defibrillator will be checked by cardiology as an outpatient. Recommend follow-up with PCP in 1 week to follow-up his hospitalization. Education on CHF, atrial fibrillation, amiodarone, and Xarelto will be provided. Patient with hypertension. Blood pressures were elevated upon admission. Medications have been adjusted for better control. Blood pressure improved. At discharge the patient will continue with carvedilol 12.5 mg 1 pill twice daily, captopril 12.5 mg 3 times a day and valsartan 160 mg daily. Recommend to maintain blood pressure less than 130/80. Further adjustment may be required with the help of his PCP if blood pressures remain above 140/90. Recommend follow-up with PCP in 1 week to monitor his progress. Recommend to recheck labBMP in 1 week to monitor. Patient with hyperlipidemia. LDL elevated at 259. Lipitor was increased to 80 mg daily. At discharge patient will continue with Lipitor 80 mg daily. Recommend to recheck labCMP and fasting lipid panel in 4 to 6 weeks to monitor his progress. Patient with history of CAD and internal pacemaker defibrillator. Patient will follow-up with cardiology within 1 week. Cardiology will plan to further evaluate his pacemaker defibrillator at that time. Patient with depression. At discharge patient will continue with Paxil 25 mg daily. Recommend follow-up with PCP to further monitor and address. Diet: AHA Activity: Ad sharon Followup: DEVAN CALLE [Primary Care Provider] - Time spent managing pt's care (in minutes): 55
[2021-03-13] MEDS: ASPIRIN EC 81 MG TAB PO SCH (09:35)
[2021-03-13] MEDS: carvediloL 12.5 MG TAB PO SCH (09:35)
[2021-03-13] MEDS: AMIODARONE HCL 200 MG TAB PO SCH (09:36)
[2021-03-13 09:37] VITALS: BP 125/75
--- NOTE | 2021-03-14 07:27 | EKG ---
Test Date: 2021-03-13 Test Time: 09:45:49 Casing In Line Feeder: ELLYN MEASUREMENT RESULTS: Intervals: Rate: 89 WI: 138 QRSD: 162 QT: 412 QTc: 501 [place]: P: 43 WI: 138 QRS: 29 T: 216 INTERPRETIVE STATEMENTS: Sinus rhythm with frequent premature ventricular complexes Nonspecific intraventricular block Inferior infarct, age undetermined Abnormal ECG Compared to ECG 03/13/2021 09:44:26 T-wave abnormality no longer present Possible ischemia no longer present Myocardial infarct finding still present Electronically Signed On 03-14-21 07:26:05 DIRECTOR OF EMPLOYEE DEVELOPMENT by Arben Mccauley
--- NOTE | 2021-03-14 07:27 | EKG ---
Test Date: 2021-03-13 Test Time: 09:44:26 Director Of Media: ELLYN MEASUREMENT RESULTS: Intervals: Rate: 86 AR: 140 QRSD: 140 QT: 402 QTc: 481 [place]: P: 45 AR: 140 QRS: 30 T: 211 INTERPRETIVE STATEMENTS: Sinus rhythm with frequent premature ventricular complexes Nonspecific intraventricular block Inferior infarct, age undetermined T wave abnormality, consider lateral ischemia Abnormal ECG Compared to ECG 03/12/2021 00:57:26 Ventricular premature complex(es) now present T-wave abnormality now present Possible ischemia now present Left ventricular hypertrophy no longer present Early repolarization no longer present Myocardial infarct finding still present Electronically Signed On 03-14-21 07:26:05 MOLD CLEANING AND STORAGE SUPERVISOR by Arben Mccauley
--- NOTE | 2021-03-14 07:32 | EKG ---
Test Date: 2021-03-12 Test Time: 00:57:26 Continuous Improvement Lead: MEASUREMENT RESULTS: Intervals: Rate: 95 MT: 136 QRSD: 156 QT: 378 QTc: 475 [place]: P: 38 MT: 136 QRS: 14 T: 234 INTERPRETIVE STATEMENTS: Normal sinus rhythm Left ventricular hypertrophy with QRS widening and repolarization abnormality Lateral infarct, age undetermined Inferior infarct, age undetermined Abnormal ECG Compared to ECG 03/12/1998 11:24:00 Left ventricular hypertrophy now present Early repolarization now present Atrial abnormality no longer present Myocardial infarct finding still present Electronically Signed On 03-14-21 07:26:45 CORPORATE RISK ANALYST by Arben Mccauley
--- NOTE | 2021-03-14 07:33 | EKG ---
Test Date: 2021-03-11 Test Time: 20:51:07 Inweaver: ALL MEASUREMENT RESULTS: Intervals: Rate: 128 NC: 132 QRSD: 124 QT: 328 QTc: 478 [place]: P: 20 NC: 132 QRS: 21 T: 236 INTERPRETIVE STATEMENTS: Sinus tachycardia with occasional premature ventricular complexes Inferior infarct, age undetermined ST & T wave abnormality, consider lateral ischemia Abnormal ECG Compared to ECG 03/11/2021 20:50:25 Ventricular premature complex(es) now present ST (T wave) deviation now present T-wave abnormality no longer present Myocardial infarct finding still present Possible ischemia still present Electronically Signed On 03-14-21 07:26:50 FARMWORKER FIELD CROP by Arben Mccauley
--- NOTE | 2021-03-14 07:33 | EKG ---
Test Date: 2021-03-11 Test Time: 20:50:25 Tie Hacker: ALL MEASUREMENT RESULTS: Intervals: Rate: 103 [place]: 142 QRSD: 132 QT: 348 QTc: 455 [place]: P: 40 CA: 142 QRS: 22 T: 243 INTERPRETIVE STATEMENTS: Sinus tachycardia Nonspecific intraventricular block Inferior infarct, age undetermined T wave abnormality, consider lateral ischemia Abnormal ECG Compared to ECG 03/12/1998 11:24:00 T-wave abnormality now present Possible ischemia now present Sinus rhythm no longer present Atrial abnormality no longer present Myocardial infarct finding still present Electronically Signed On 03-14-21 07:26:51 RIGGER HELPER by Arben Mccauley
== END 2021-03-13 12:44 | disposition home or self-care (01) | DRG 291 ==
LOC: ER 20:22 → ERHOLD 23:58 → 2ND 03-12 19:48
PROVIDERS: ADMIT Family Medicine; ATTEND Family Medicine
DX: I11.0 Hypertensive heart disease with heart failure (principal); I50.43 Acute on chronic combined systolic (congestive) and diastolic (congestive) heart failure; I47.2 Ventricular tachycardia; I48.91 Unspecified atrial fibrillation; E78.5 Hyperlipidemia, unspecified; I25.10 Atherosclerotic heart disease of native coronary artery without angina pectoris; F32.A Depression, unspecified; I25.2 Old myocardial infarction; Z95.810 Presence of automatic (implantable) cardiac defibrillator; Z95.1 Presence of aortocoronary bypass graft; Z95.5 Presence of coronary angioplasty implant and graft; Z20.822 Contact with and (suspected) exposure to COVID-19
CPT/HCPCS: 0240U; 36415; 71045; 80048; 80053; 80061; 80076; 81003; 83735; 83880; 84100; 84439; 84443; 84484; 85025; 85610; 93005; 94760; 96374; 99285; J0282; J1650; J1940; J7060